=== PATIENT | male | born 1970 | race Caucasian/White ===

== ENCOUNTER → 2022-05-18 09:10 | Outpatient (BNVA) | payer OTHER, SELFPAY | PROVIDERS: PCP Emergency Medicine Emergency Medical Services; Visit Provider Surgery | DX: Z12.11 Encounter for screening for malignant neoplasm of colon (principal); K21.9 Gastro-esophageal reflux disease without esophagitis | CPT/HCPCS: 99203 ==

== ENCOUNTER 2022-08-02 05:32 | Day surgery (SDC) | payer OTHER, SELFPAY ==
[2022-07-31 11:08] VITALS: BMI 30.8
--- NOTE | 2022-08-02 06:06 | P.HP_ITS ---
Providers/Chief Complaint Primary Care Provider: Ramu Beavers DO Chief Complaint: Abdominal pain History of Present Illness Daniel Mccoy is a 52 year old male here for EGD and colonoscopy Medications/Allergies Home Medications Medication Instructions Recorded Confirmed Last Taken Type carvedilol 25 mg tablet 25 mg PO BID 05/18/22 07/31/22 07/31/22 History empagliflozin 10 mg tablet 10 mg PO DAILY 05/18/22 07/31/22 07/31/22 History (Jardiance) lisinopril 30 mg tablet 30 mg PO BID 05/18/22 07/31/22 07/31/22 History omeprazole 10 mg capsule,delayed 10 mg PO DAILY 05/18/22 07/31/22 07/31/22 History release aspirin 325 mg tablet 325 mg PO DAILY 07/31/22 07/31/22 07/30/22 History atorvastatin 40 mg tablet 40 mg PO QPM 07/31/22 07/31/22 07/30/22 History Allergies Allergy/AdvReac Type Severity Reaction Status Date / Time No Known Allergies Allergy Unverified 05/18/22 09:16 PFSH Acute PFSH: Medical History (Updated 05/18/22 @ 09:30 by Jose L Cordero DO) GERD (gastroesophageal reflux disease) History of heart attack 2010 Pacemaker 2011 Surgical History Hx of heart bypass surgery 2009 Family History Mother Heart attack Father Heart attack Social History Smoking and tobacco status: never smoked Vitals/I&O/Wt Weight last 48 hrs Weight 240 lb A&P Assessment and plan (1) GERD (gastroesophageal reflux disease): Status: Acute Plan EGD and colonoscopy Attestations Medical Necessity Statement*: home Coding Level of Care Code Acute Shear Operator for [facility] Fwd Diagnoses GERD (gastroesophageal reflux disease) K21.9
[2022-08-02 06:16] VITALS: BP 152/95; PULSE 72; RESP 20; O2SAT 97
[2022-08-02] MEDS: sodium chloride 0.9% 1,000 ML 30 ML IV (06:20)
--- NOTE | 2022-08-02 06:56 | ANES.PREANE2 ---
Pre-Anesthetic Assessment Height/Weight: Height 1.88 m Weight 108.862 kg Pulse Resp BP Pulse Ox O2 Del Method 72 20 H 152/95 97 08/02/22 06:16 08/02/22 06:16 08/02/22 06:16 08/02/22 06:16 08/02/22 06:16 Preop Diagnosis: Screening Operation Date: 08/02/22 07:00 Proposed Procedures p EGD and colonoscopy 56249,97181,Z12.11,K21.9(Not Applicable) - Jose L Cordero DO s Colonoscopy(Not Applicable) - Jose L Cordero DO Familial anesthetic complications: None Was Beta Matias taken within 24 hours: Yes Was Clonidine taken within 24 hours: N/A Last intake: Intake Last Liquid Date 08/01/22 Last Liquid Time 23:15 Last Solid Date 07/31/22 Last Solid Time 21:00 Social Alcohol (occasional ) and No tobacco Exam alert, oriented x 3 and clear to auscultation bilaterally Airway Submandibular: within normal limits Cervical ROM: within normal limits Mallampati: Class II Dentition: full History/ROS No significant history except as noted Pulmonary None reported CV/HEM Hypertension and Myocardial Infarction LA IN 2009, CABG 2009 None reported Hepatic None reported GI Gastroesophageal Reflux Disease Metabolic None reported Musc/skel None reported Neuropsych None reported Anesthetic Plan Anesthesia: Anesthesia Evaluation and MAC Risk of > 500 ml blood loss (7ml/kg in children): No Medications/Allergies Home Medications Medication Instructions Recorded Confirmed Last Taken Type carvedilol 25 mg tablet 25 mg PO BID 05/18/22 07/31/22 08/01/22 History empagliflozin 10 mg tablet 10 mg PO DAILY 05/18/22 07/31/22 08/01/22 History (Jardiance) lisinopril 30 mg tablet 30 mg PO BID 05/18/22 07/31/22 08/01/22 History omeprazole 10 mg capsule,delayed 10 mg PO DAILY 05/18/22 07/31/22 08/01/22 History release aspirin 325 mg tablet 325 mg PO DAILY 07/31/22 07/31/22 07/30/22 History atorvastatin 40 mg tablet 40 mg PO QPM 07/31/22 07/31/22 07/31/22 History Allergies Allergy/AdvReac Type Severity Reaction Status Date / Time No Known Allergies Allergy Unverified 05/18/22 09:16 Current Medications Generic Name Dose Route Start Last Admin Trade Name Sharif PRN Reason Stop Dose Admin Sodium Chloride 1,000 mls @ 30 mls/hr 08/02/22 06:00 08/02/22 06:20 Sodium Chloride 0.9% IV 08/03/22 05:59 30 mls/hr .Q24H MICHOACANO Administration PFSH Anesthesia Medical History (Updated 05/18/22 @ 09:30 by Jose L Cordero DO) GERD (gastroesophageal reflux disease) History of heart attack 2009 Pacemaker 2011 Surgical History Hx of heart bypass surgery 2009 Family History Mother Heart attack Father Heart attack Social History Smoking and tobacco status: never smoked Data Anesthesia Cardiac Studies: No Data to Display
[2022-08-02 07:32] VITALS: BP 135/79; PULSE 69; RESP 16; TEMP 35.2; O2SAT 94
[2022-08-02 07:43] VITALS: BP 126/67; PULSE 67; RESP 18; O2SAT 98
--- NOTE | 2022-08-02 11:47 | ANE.PACU2 ---
Inpatient post-anesthesia follow up: Airway intact: Yes Vital signs: Temperature 95.4 F Pulse Rate 67 Respiratory Rate 18 Blood Pressure 126/67 Pulse Oximetry 98 Oxygen Delivery Me thod Room Air Oxygen Flow Rate 2 Fraction of Inspir ed Oxygen Hydration adequate: Yes Nausea and vomiting: No Pain level: 1 Mental status: Baseline
== END 2022-08-02 07:56 | disposition home or self-care (01) ==
PROVIDERS: PCP Emergency Medicine Emergency Medical Services; Visit Provider Surgery
PROC: 0DJ08ZZ Inspection of Upper Intestinal Tract, Via Natural or Artificial Opening Endoscopic (ICD-10-PCS; CPT 43235; principal; 2022-08-02 07:00)
PROC: 0DJD8ZZ Inspection of Lower Intestinal Tract, Via Natural or Artificial Opening Endoscopic (ICD-10-PCS; CPT 45378; 2022-08-02 07:00)
DX: Z12.11 Encounter for screening for malignant neoplasm of colon (principal); K57.30 Diverticulosis of large intestine without perforation or abscess without bleeding; K21.9 Gastro-esophageal reflux disease without esophagitis; I10 Essential (primary) hypertension; I25.2 Old myocardial infarction; Z79.82 Long term (current) use of aspirin; Z95.0 Presence of cardiac pacemaker; Z95.1 Presence of aortocoronary bypass graft
CPT/HCPCS: 43235; 45378; J2370; J2704; J7030

== ENCOUNTER → 2022-12-21 13:18 | Outpatient (BNVA) | payer OTHER, SELFPAY | PROVIDERS: PCP Emergency Medicine Emergency Medical Services; Visit Provider Internal Medicine Cardiovascular Disease | DX: I25.10 Atherosclerotic heart disease of native coronary artery without angina pectoris (principal); Z95.810 Presence of automatic (implantable) cardiac defibrillator; I25.5 Ischemic cardiomyopathy; E78.5 Hyperlipidemia, unspecified | CPT/HCPCS: 93005; 93288; 93289; 99204; Q3014 ==

== ENCOUNTER → 2023-01-17 13:59 | Outpatient (BNVA) | payer OTHER, SELFPAY | PROVIDERS: PCP Emergency Medicine Emergency Medical Services; Visit Provider Internal Medicine Cardiovascular Disease | DX: Z45.02 Encounter for adjustment and management of automatic implantable cardiac defibrillator (principal) | CPT/HCPCS: 93289 ==

== ENCOUNTER 2023-02-15 13:09 | Emergency (ER) | payer OTHER, SELFPAY ==
[2023-02-15 13:19] VITALS: BP 118/78; PULSE 72; RESP 18; TEMP 36.7; O2SAT 98; BMI 28.5
--- NOTE | 2023-02-15 13:25 | ECG_ITS ---
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 Measurements Intervals [place] Rate: 74 P: 59 MA: 143 QRS: -81 QRSD: 172 T: 77 QT: 463 QTc: 516 Interpretive Statements ELECTRONIC VENTRICULAR PACEMAKER No previous ECG available for comparison Electronically Signed On 02-15-2023 18:42:15 CDT by Mega Whitney M.D. [id number]
[2023-02-15 16:03] VITALS: BP 118/78; PULSE 72; RESP 18; TEMP 36.7; O2SAT 98
== END 2023-02-15 16:04 | disposition left against medical advice (07) ==
PROVIDERS: Emergency Provider Family Medicine; PCP Emergency Medicine Emergency Medical Services
DX: Z53.21 Procedure and treatment not carried out due to patient leaving prior to being seen by health care provider (principal)
CPT/HCPCS: 93005; 99283

== ENCOUNTER 2023-02-26 06:32 | Emergency (ER) | payer OTHER, SELFPAY ==
[2023-02-26] VITALS (7 sets, daily range): BP systolic 100–132; BP diastolic 64–76; PULSE 69–76; RESP 12–18; TEMP 36.5; O2SAT 97–99; BMI 28.2
--- NOTE | 2023-02-26 06:41 | XR_ITS ---
WS: [id number] EXAMINATION: XR chest 1V portable [id number] REASON FOR EXAM: dyspnea/cough COMPARISON: None available. ORDER DATE: 02/26/2023 7:08 AM TECHNIQUE: A single, portable frontal chest x-ray was obtained. X-RAY FINDINGS: The lungs are clear. Pleural spaces are clear. No pleural effusions or pneumothorax. Cardiomediastinal silhouette unremarkable except for postsurgical changes. There is a left-sided ICD. No evidence for pulmonary edema. Soft tissue and osseous structures are unremarkable. XR/XR chest 1V portable [id number] IMPRESSION: No acute pulmonary change.
--- NOTE | 2023-02-26 06:59 | ECG_ITS ---
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 Measurements Intervals [place] Rate: 71 P: 148 [place]: 143 QRS: -33 QRSD: 172 T: -12 QT: 498 QTc: 543 Interpretive Statements ELECTRONIC VENTRICULAR PACEMAKER ABNORMAL RHYTHM ECG Compared to ECG 02/15/2023 13:26:31 No significant changes Electronically Signed On 02-26-2023 23:37:30 CDT by Linnette Pratt M.D. [id number] f
[2023-02-26 07:13] LABS: Basophils % 0.3 %; Eosinophils % 0.1 %; Hematocrit 38.1 % (42.0-52.0); Hemoglobin 12.5 g/dL (11.7-16.6); Lymphocytes % 8.4 %; Mean Corpuscular HGB Conc 32.8 g/dL (30.0-36.0); Mean Corpuscular Hemoglobin 29.3 pg (28.0-34.0); Mean Corpuscular Volume 89.4 fl (80-94); Mean Platelet Volume 9.8 fL (7.4-10.4); Monocytes # 0.8 10^3/uL (0.2-0.9); Monocytes % 6.5 %; Neutrophils # 10.19 10^3/uL (1.8-7.7); Neutrophils % 84.2 %; Nucleated Red Blood Cells % 0 %; Platelet Count 169 10^3/cmm (130-400); Red Blood Count 4.26 10^6/uL (4.1-5.3); Red Cell Distribution Width 12.5 % (12.1-15.1); White Blood Count 12.1 10^3/uL (4.0-10.0)
--- NOTE | 2023-02-26 07:17 | ED_ITS ---
HPI - Weakness General: Chief complaint: Weakness Stated complaint: Pale, Chills, Cough, N/V Time Seen by Provider: 02/26/23 06:40 Source: patient Mode of arrival: ambulatory History of Present Illness: 52-year-old male presents to the emergency room with complaints of chills nausea vomiting cough shortness of breath. 6 weeks ag o patient had a pacemaker revision with a lead removal for his ICD. He has a small portion of the wound that has dehisced he has noted some purulent drainage from it at times. It is not actively draining at this time. No chest pain no orthopnea no PND no increased swelling in his legs he has not had any distal discharges from his ICD that he has noted. He has a known history of severe ischemic cardiomyopathy. Severity: mild Relieving factors: none Associated symptoms: Denies chest pain, chills, confusion, melena, decreased appetite, diaphoresis, dysuria, easy bruising, fever(s), headache(s), myalgias, nausea, rash, short of breath, syncope or vomiting Review of Systems Const: Denies: fever(s), chills or diaphoresis ENMT: Denies: throat pain, ear or mastoid pain, nasal discharge or nasal daniele estion Card: Denies: chest pain, palpitations, edema, syncope or orthopnea Resp: Denies: dyspnea, productive cough or non-productive cough GI: Denies: abdominal pain, nausea, vomiting or melena : Denies: dysuria, urinary frequency or urinary urgency Skin/Breast: Denies: rash or pruritus Neuro: Denies: headache(s) or confusion Bert/Lymph: Denies: easy bruising [facility] ED PFSH: Medical History CAD (coronary artery disease) Cardiac resynchronization therapy defibrillator (ARCHIVIST-D) in place Dyslipidemia GERD (gastroesophageal reflux disease) History of heart attack 2010 Ischemic cardiomyopathy Surgical History Hx of heart bypass surgery 2010 S/P coronary artery stent placement Family History Mother Heart attack Father Heart attack Social History (Reviewed 02/26/23 @ 07:23 by MELITA Crews Smoking and tobacco status: former smoker Physical Exam Const: COMMON NORMALS: no acute distress GENERAL APPEARANCE: cooperative and comfortable ORIENTATION/CONSCIOUSNESS: Yes awake, Yes oriented to person, Yes oriented to place and Yes oriented to time HENMT: COMMON NORMALS: normocephalic, atraumatic and hearing grossly normal bilaterally HEAD & SCALP: normocephalic and atraumatic Resp: COMMON NORMALS: normal respiratory effort, No retractions, No use of accessory muscles and clear to auscultation bilaterally AUSCULTATION: clear to auscultation bilaterally Cardio: COMMON NORMALS: regular rate, regular rhythm and No murmurs present (Cardio) RATE: regular rate RHYTHM: regular rhythm GI: COMMON NORMALS: Soft to palpation and No hepatosplenomegaly present AUSCULTATION: Yes normoactive bowel sounds PALPATION: Yes Soft to palpation, No Tenderness to palpation present (GI), No Guarding due to palpation present (GI) and Yes No hepatosplenomegaly present Extremity: COMMON NORMALS: normal to inspection, capillary refill normal, no clubbing, cyanosis or edema, no calf tenderness and no pedal edema Neuro: SENSORIUM/ORIENTATION: Yes oriented to person, Yes oriented to place and Yes oriented to time Skin: OTHER: Pinpoint opening on the superior medial aspect of the wound approximately 3 mm in diameter no active drainage no localized erythema. With compression of the area I can exclude a purulent drainage to this was cultured. By manipulating the wound a little bit I am able to visualize the pacemaker through the wound and can actually read several numbers of the serial number. Course Vital Signs: Vital signs: Vital Signs Temperature 97.7 F 02/26/23 06:38 Pulse Rate 72 02/26/23 12:36 Respiratory Rate 12 02/26/23 12:36 Blood Pressure 120/69 02/26/23 12:36 Pulse Oximetry 98 02/26/23 12:36 Oxygen Delivery Me thod 02/26/23 07:00 MDM - Weakness Medical Decision Making Patient appears to have infection and additionally has an open wound. There is purulent drainage coming from the cavity around the pacemaker itself I called Dr. Moreno who is the attending and placed the pacer. Discussed with him related findings he recommends that we transfer patient. Patient was given a dose of IV vancomycin here and transferred to [place] were Dr. Moreno will see the patient and discuss further recommendations. Medical Records I reviewed the patient's medical records. Lab Data I reviewed the patient's lab results. 02/26/23 07:05 02/26/23 07:05 Radiology Impressions Chest X-Ray 02/26/23 06:41 IMPRESSION: No acute pulmonary change. Laboratory Results WBC 12.1 10^3/uL (4.0-10.0) H 02/26/23 07:05 RBC 4.26 10^6/uL (4.1-5.3) 02/26/23 07:05 Hgb 12.5 g/dL (11.7-16.6) 02/26/23 07:05 Hct 38.1 % (42.0-52.0) L 02/26/23 07:05 MCV 89.4 fl (80-94) 02/26/23 07:05 MCH 29.3 pg (28.0-34.0) 02/26/23 07:05 MCHC 32.8 g/dL (30.0-36.0) 02/26/23 07:05 RDW 12.5 % (12.1-15.1) 02/26/23 07:05 Plt Count 169 10^3/cmm (130-400) 02/26/23 07:05 MPV 9.8 fL (7.4-10.4) 02/26/23 07:05 Neut % (Auto) 84.2 % 02/26/23 07:05 Lymph % (Auto) 8.4 % 02/26/23 07:05 [place] % (Auto) 6.5 % 02/26/23 07:05 Eos % (Auto) 0.1 % 02/26/23 07:05 Baso % (Auto) 0.3 % 02/26/23 07:05 Neut # (Auto) 10.19 10^3/uL (1.8-7.7) H 02/26/23 07:05 Lymph # (Auto) 1.0 10^3/uL (0.8-4.8) 02/26/23 07:05 [place] # (Auto) 0.8 10^3/uL (0.2-0.9) 02/26/23 07:05 Eos # (Auto) 0.0 10^3/uL (0.0-0.8) 02/26/23 07:05 Baso # (Auto) 0.0 10^3/uL (0.0-0.1) 02/26/23 07:05 Nucleated RBC % (auto) 0 % 02/26/23 07:05 Nucleated RBCs # 0.0 /100WBC 02/26/23 07:05 Sodium 133 mmol/L (136-145) L 02/26/23 07:05 Potassium 3.7 mmol/L (3.5-5.1) 02/26/23 07:05 Chloride 96 mmol/L (98-107) L 02/26/23 07:05 Carbon Dioxide 23 mmol/L (22-29) 02/26/23 07:05 Anion Gap 17.7 (5-19) 02/26/23 07:05 BUN 15 mg/dL (6-20) 02/26/23 07:05 Creatinine 0.8 mg/dL (0.7-1.2) 02/26/23 07:05 GFR Calculation 101.1 mL/min (90-130) 02/26/23 07:05 Glucose 118 mg/dL (65-115) H 02/26/23 07:05 Calculated Osmolality 278 mOsm/kg (285-295) L 02/26/23 07:05 Calcium 8.9 mg/dL (8.5-10.5) 02/26/23 07:05 Total Bilirubin 0.9 mg/dL (0.15-1.2) 02/26/23 07:05 AST 28 U/L (0-40) 02/26/23 07:05 ALT 25 U/L (0-41) 02/26/23 07:05 Alkaline Phosphatase 71 U/L (40-130) 02/26/23 07:05 NT-Pro-B Natriuret Pep 1398 pg/mL (0-125) H 02/26/23 07:05 Total Protein 7.1 g/dL (6.6-8.7) 02/26/23 07:05 Albumin 2.9 g/dL (3.5-5.2) L 02/26/23 07:05 Globulin 4.2 g/dL (1.3-4.6) 02/26/23 07:05 Urine Color Dark yellow (Yellow) 02/26/23 08:12 Urine Appearance Clear (CLEAR) 02/26/23 08:12 Urine pH 5 (5-7) 02/26/23 08:12 Ur Specific [place] 1.020 (1.005-1.030) 02/26/23 08:12 Urine Protein Neg (Negative) 02/26/23 08:12 Urine Glucose (UA) 4+ (Normal) H 02/26/23 08:12 Urine Ketones 1+ (Negative) H 02/26/23 08:12 Urine Blood 2+ (Negative) H 02/26/23 08:12 Urine Nitrate Negative (Negative) 02/26/23 08:12 Urine Bilirubin Neg (Negative) 02/26/23 08:12 Urine Urobilinogen Norm mg/dL (Negative) 02/26/23 08:12 Ur Leukocyte Esterase Negative (Negative) 02/26/23 08:12 Urine RBC 0-4 /hpf (0-2) H 02/26/23 08:12 Urine WBC 0-4 /hpf (0-5) H 02/26/23 08:12 Ur Squamous Epith Cells Rare /hpf (0-5) 02/26/23 08:12 Ur Transition Epith Cell 0-4 /hpf 02/26/23 08:12 Amorphous Sediment Not Reportable 02/26/23 08:12 Urine Bacteria Trace /hpf (NONE) 02/26/23 08:12 Hyaline Casts 0-4 /lpf H 02/26/23 08:12 Urine Mucus Trace /hpf 02/26/23 08:12 Discharge Plan Discharge Patient Disposition: Xfer Short-Term Hosp Condition: Stable Referrals: Ramu Beavers DO [Primary Care Provider] - Coding Level of Care Code ED Plasticator for [facility]
--- NOTE | 2023-02-26 07:36 | PC.NURSE ---
PT PLACED ON CONTINUOUS NIBP, SPO2, AND CM
[2023-02-26 07:42] LABS: Alanine Aminotransferase 25 U/L (0-41); Albumin Level 2.9 g/dL (3.5-5.2); Alkaline Phosphatase 71 U/L (40-130); Anion Gap 17.7 (5-19); Aspartate Amino Transferase 28 U/L (0-40); Blood Urea Nitrogen 15 mg/dL (6-20); Calcium 8.9 mg/dL (8.5-10.5); Carbon Dioxide 23 mmol/L (22-29); Chloride 96 mmol/L (98-107); Globulin 4.2 g/dL (1.3-4.6); Glomerular Filtration Rate 101.1 mL/min (90-130); Glucose 118 mg/dL (65-115); NT Pro B Type Natriuretic Pept 1398 pg/mL (0-125); Osmolality Calculated 278 mOsm/kg (285-295); Potassium 3.7 mmol/L (3.5-5.1); Sodium 133 mmol/L (136-145); Total Bilirubin 0.9 mg/dL (0.15-1.2); Total Protein 7.1 g/dL (6.6-8.7)
--- NOTE | 2023-02-26 08:09 | PC.PHAR ---
Addendum entered by Christel Alegria 02/26/23 08:11: [facility] to [facility] Original Note: pt and pts verified pts medications-pts states she had put the pts lisinopril 40mg daily on hold for a week now states his bp was low-pt states he didnt take any meds today
[2023-02-26 08:45] LABS: Protein Urine Neg (Negative); Urine Appearance Clear (CLEAR); Urine Color Dark Yellow (Yellow); pH Urine 5 (5-7)
[2023-02-26 08:46] LABS: Add Urine Microscopic? YES; Bilirubin Urine Neg (Negative); Blood Urine 2+ (Negative); Glucose Urine UA 4+ (Normal); Ketones Urine 1+ (Negative); Leukocyte Esterase Urine Negative (Negative); Nitrate Urine Negative (Negative); Urobilinogen Urine Norm (Negative)
[2023-02-26 08:47] LABS: RBC Urine 0-4 /hpf (0-2); Squamous Epithelial Cell Urine RARE /hpf (0-5); Transitional Epi Cells Urine 0-4 /hpf; WBC Urine 0-4 /hpf (0-5)
[2023-02-26 08:48] LABS: Add Urine Culture? No; Bacteria Urine TRACE /hpf; Hyaline Casts Urine 0-4 /lpf; Mucus Urine TRACE /hpf
--- NOTE | 2023-02-26 12:37 | PC.NURSE ---
PT REPORT CALLED TO GILLIAN DALE AT [facility]
[2023-02-26] MEDS: D5-NS 0.45% + KCL 20 mEq 20 MEQ/1,000 ML BAG 75 MEQ IV (12:53)
[2023-02-27 07:10] LABS: Acinetobacter baumannii Not Detected (NOT DETECT); Bacteroides fragilis Not Detected (NOT DETECT); CTX-M Not Detected (NOT DETECT); Citrobacter Not Detected (NOT DETECT); Cronobacter sakazakii Not Detected (NOT DETECT); Enterobacter cloacae complex Not Detected (NOT DETECT); Enterobacter non cloacae Not Detected (NOT DETECT); Fusobacterium necrophorum Not Detected (NOT DETECT); Fusobacterium nucleatum Not Detected (NOT DETECT); Haemophilus influenzae Not Detected (NOT DETECT); IMP Resistance Gene Not Detected (NOT DETECT); KPC Resistance Gene Not Detected (NOT DETECT); Klebsiella pneumoniae group Not Detected (NOT DETECT); Morganella morganii Not Detected (NOT DETECT); NDM Resistance Gene Not Detected (NOT DETECT); Neisseria meningitidis Not Detected (NOT DETECT); OXA Resistance Gene Not Detected (NOT DETECT); Pan Candida Not Detected (NOT DETECT); Pan Gram-Positive Not Detected (NOT DETECT); Proteus mirabilis Not Detected (NOT DETECT); Pseudomonas aeruginosa Detected (NOT DETECT); Salmonella Not Detected (NOT DETECT); Serratia Not Detected (NOT DETECT); Serratia marcescens Not Detected (NOT DETECT); Stenotrophomonas maltophilia Not Detected (NOT DETECT); VIM Resistance Gene Not Detected (NOT DETECT)
== END 2023-02-26 13:30 | disposition short-term general hospital (02) ==
PROVIDERS: Emergency Provider Family Medicine; PCP Emergency Medicine Emergency Medical Services
DX: T82.7XXA Infection and inflammatory reaction due to other cardiac and vascular devices, implants and grafts, initial encounter (principal); Y71.8 Miscellaneous cardiovascular devices associated with adverse incidents, not elsewhere classified; I25.10 Atherosclerotic heart disease of native coronary artery without angina pectoris; E78.5 Hyperlipidemia, unspecified; Z95.0 Presence of cardiac pacemaker; Z87.891 Personal history of nicotine dependence
CPT/HCPCS: 36415; 71045; 80053; 81001; 83880; 85025; 87040; 87070; 87077; 87150; 87186; 87205; 93005; 96365; 96366; 99285

== ENCOUNTER 2023-03-21 13:35 | Outpatient (CLI) | payer OTHER, SELFPAY ==
[2023-03-21 14:07] LABS: Basophils # 0.1 10^3/uL (0.0-0.1); Basophils % 1.3 %; Eosinophils # 0.4 10^3/uL (0.0-0.8); Eosinophils % 5.6 %; Hematocrit 36.4 % (42.0-52.0); Hemoglobin 11.8 g/dL (11.7-16.6); Lymphocytes # 1.9 10^3/uL (0.8-4.8); Lymphocytes % 30.8 %; Mean Corpuscular HGB Conc 32.4 g/dL (30.0-36.0); Mean Corpuscular Volume 92.6 fl (80-94); Mean Platelet Volume 10.5 fL (7.4-10.4); Monocytes # 0.5 10^3/uL (0.2-0.9); Monocytes % 7.5 %; Neutrophils # 3.44 10^3/uL (1.8-7.7); Neutrophils % 54.5 %; Nucleated Red Blood Cells % 0 %; Platelet Count 326 10^3/cmm (130-400); Red Blood Count 3.93 10^6/uL (4.1-5.3); Red Cell Distribution Width 15.5 % (12.1-15.1); White Blood Count 6.3 10^3/uL (4.0-10.0)
== END 2023-03-21 13:36 | disposition home or self-care (01) ==
LOC: LAB 13:36
PROVIDERS: PCP Emergency Medicine Emergency Medical Services; Visit Provider Emergency Medicine Emergency Medical Services
DX: T82.7XXA Infection and inflammatory reaction due to other cardiac and vascular devices, implants and grafts, initial encounter (principal); Y83.8 Other surgical procedures as the cause of abnormal reaction of the patient, or of later complication, without mention of misadventure at the time of the procedure
CPT/HCPCS: 85025

== ENCOUNTER 2023-03-28 14:26 | Outpatient (CLI) | payer OTHER, SELFPAY ==
[2023-03-28 15:00] LABS: Basophils % 0.9 %; Eosinophils # 0.3 10^3/uL (0.0-0.8); Eosinophils % 6.5 %; Hematocrit 38.3 % (42.0-52.0); Hemoglobin 12.3 g/dL (11.7-16.6); Lymphocytes # 1.5 10^3/uL (0.8-4.8); Lymphocytes % 34.1 %; Mean Corpuscular HGB Conc 32.1 g/dL (30.0-36.0); Mean Corpuscular Hemoglobin 30.8 pg (28.0-34.0); Mean Platelet Volume 10.7 fL (7.4-10.4); Monocytes # 0.4 10^3/uL (0.2-0.9); Neutrophils # 2.06 10^3/uL (1.8-7.7); Neutrophils % 48.3 %; Nucleated Red Blood Cells % 0 %; Platelet Count 221 10^3/cmm (130-400); Red Blood Count 3.99 10^6/uL (4.1-5.3); Red Cell Distribution Width 15.9 % (12.1-15.1); White Blood Count 4.3 10^3/uL (4.0-10.0)
[2023-03-28 15:25] LABS: Alanine Aminotransferase 31 U/L (0-41); Albumin Level 4.2 g/dL (3.5-5.2); Alkaline Phosphatase 81 U/L (40-130); Anion Gap 14.9 (5-19); Aspartate Amino Transferase 24 U/L (0-40); Blood Urea Nitrogen 19 mg/dL (6-20); Carbon Dioxide 24 mmol/L (22-29); Chloride 104 mmol/L (98-107); Globulin 2.3 g/dL (1.3-4.6); Glomerular Filtration Rate 140.9 mL/min (90-130); Glucose 112 mg/dL (65-115); Osmolality Calculated 291 mOsm/kg (285-295); Potassium 3.9 mmol/L (3.5-5.1); Sodium 139 mmol/L (136-145); Total Bilirubin 0.4 mg/dL (0.15-1.2); Total Protein 6.5 g/dL (6.6-8.7)
== END 2023-03-28 14:27 | disposition home or self-care (01) ==
LOC: LAB 14:27
PROVIDERS: PCP Emergency Medicine Emergency Medical Services; Visit Provider Emergency Medicine Emergency Medical Services
DX: T82.7XXA Infection and inflammatory reaction due to other cardiac and vascular devices, implants and grafts, initial encounter (principal); Y83.8 Other surgical procedures as the cause of abnormal reaction of the patient, or of later complication, without mention of misadventure at the time of the procedure
CPT/HCPCS: 80053; 85025; 86140

== ENCOUNTER 2023-04-04 11:38 | Outpatient (CLI) | payer OTHER, SELFPAY ==
[2023-04-04 12:05] LABS: Basophils # 0.1 10^3/uL (0.0-0.1); Basophils % 0.8 %; Eosinophils # 0.2 10^3/uL (0.0-0.8); Eosinophils % 2.3 %; Hematocrit 39.7 % (42.0-52.0); Hemoglobin 13.1 g/dL (11.7-16.6); Lymphocytes # 1.2 10^3/uL (0.8-4.8); Lymphocytes % 16.2 %; Mean Corpuscular Hemoglobin 31.1 pg (28.0-34.0); Mean Corpuscular Volume 94.3 fl (80-94); Mean Platelet Volume 10.6 fL (7.4-10.4); Monocytes # 0.5 10^3/uL (0.2-0.9); Monocytes % 6.6 %; Neutrophils # 5.22 10^3/uL (1.8-7.7); Neutrophils % 73.8 %; Nucleated Red Blood Cells % 0 %; Platelet Count 200 10^3/cmm (130-400); Red Blood Count 4.21 10^6/uL (4.1-5.3); Red Cell Distribution Width 15.9 % (12.1-15.1); White Blood Count 7.1 10^3/uL (4.0-10.0)
[2023-04-04 12:29] LABS: Alanine Aminotransferase 31 U/L (0-41); Albumin Level 4.4 g/dL (3.5-5.2); Alkaline Phosphatase 78 U/L (40-130); Aspartate Amino Transferase 31 U/L (0-40); Blood Urea Nitrogen 15 mg/dL (6-20); Calcium 9.4 mg/dL (8.5-10.5); Carbon Dioxide 21 mmol/L (22-29); Chloride 101 mmol/L (98-107); Globulin 2.3 g/dL (1.3-4.6); Glomerular Filtration Rate 101.1 mL/min (90-130); Glucose 88 mg/dL (65-115); Osmolality Calculated 282 mOsm/kg (285-295); Sodium 136 mmol/L (136-145); Total Bilirubin 0.7 mg/dL (0.15-1.2); Total Protein 6.7 g/dL (6.6-8.7)
[2023-04-04 12:36] LABS: Anion Gap 18.1 (5-19); Potassium 4.1 mmol/L (3.5-5.1)
== END 2023-04-04 11:39 | disposition home or self-care (01) ==
LOC: LAB 11:41
PROVIDERS: PCP Emergency Medicine Emergency Medical Services; Visit Provider Emergency Medicine Emergency Medical Services
DX: T82.7XXA Infection and inflammatory reaction due to other cardiac and vascular devices, implants and grafts, initial encounter (principal); Y71.8 Miscellaneous cardiovascular devices associated with adverse incidents, not elsewhere classified; I33.0 Acute and subacute infective endocarditis
CPT/HCPCS: 80053; 85025; 86140

== ENCOUNTER → 2023-08-27 14:35 | Outpatient (BNVA) | payer OTHER, SELFPAY | PROVIDERS: PCP Emergency Medicine Emergency Medical Services; Visit Provider Dermatology | DX: D48.5 Neoplasm of uncertain behavior of skin (principal); D18.01 Hemangioma of skin and subcutaneous tissue; L74.519 Primary focal hyperhidrosis, unspecified; L81.4 Other melanin hyperpigmentation | CPT/HCPCS: 11102; 99204 ==

== ENCOUNTER → 2023-09-27 08:00 | Outpatient (BNVA) | payer OTHER, SELFPAY | PROVIDERS: PCP Emergency Medicine Emergency Medical Services; Visit Provider Dermatology | DX: C44.519 Basal cell carcinoma of skin of other part of trunk (principal) | CPT/HCPCS: 13101; 17313 ==

== ENCOUNTER → 2023-10-10 08:13 | Outpatient (BNVA) | payer OTHER, SELFPAY | PROVIDERS: PCP Emergency Medicine Emergency Medical Services; Visit Provider Nurse Practitioner Family | DX: Z48.02 Encounter for removal of sutures (principal) | CPT/HCPCS: 99024; 99212 ==

== ENCOUNTER 2023-10-11 19:54 | Emergency (ER) | payer OTHER, SELFPAY ==
[2023-10-11 20:02] VITALS: BP 182/80; PULSE 70; RESP 17; TEMP 36.5; O2SAT 97; BMI 30.2
[2023-10-11 20:23] VITALS: BP 159/75; PULSE 62; O2SAT 97
[2023-10-11] MEDS: mupirocin oint 22 gm 1 APPLIC TOPICAL (21:05)
[2023-10-11 21:15] VITALS: PULSE 63; O2SAT 97
--- NOTE | 2023-10-12 00:16 | W.ED.WOUNDLC ---
HPI - Wound/Laceration General: Chief Complaint: Wound/Laceration Stated Complaint: wound issues on back Time Seen by Provider: 10/11/23 20:19 History of Present Illness: Patient is in today for a wound. He reports that 2 weeks ago he had Mohs procedure for basal cell carcinoma on his low back. He reports that yesterday he went for his follow-up and the sutures were removed and he was told that the wound looked great with no signs of infection. He reports that today he was getting off the couch and the wound busted open again. He denies fever, chills, nausea, vomiting. Associated symptoms: Denies chills or fever(s) Review of Systems Const: Denies: fever(s) or chills Card: Denies: chest pain, palpitations or irregular heart rhythm Resp: Denies: dyspnea, productive cough or non-productive cough Skin/Breast: Reports: other (Wound dehiscence) [facility] ACCESS [facility] ED PFSH: Medical History CAD (coronary artery disease) Cardiac resynchronization therapy defibrillator (RESIDENTIAL LIFE DIRECTOR-D) in place Dyslipidemia GERD (gastroesophageal reflux disease) History of heart attack 2010 Ischemic cardiomyopathy Surgical History Hx of heart bypass surgery 2010 S/P coronary artery stent placement Family History Mother Heart attack Father Heart attack Social History Smoking and tobacco/nicotine status: former use of tobacco/nicotine Physical Exam Const: COMMON NORMALS: no acute distress, patient oriented x3 and alert OTHER: Patient does appear anxious. He states that he has had so many medical issues that it just makes him anxious. Resp: COMMON NORMALS: normal respiratory effort and No use of accessory muscles Neuro: COMMON NORMALS: patient oriented x3 SENSORIUM/ORIENTATION: Yes alert Skin: NARRATIVE SKIN EXAM: Dehisced surgical wound on patient's mid lower back. Approximately 1 inch x 2-1/2 inches. Wound bed is beefy red with no discolored drainage. No surrounding erythema. Course Vital Signs: Vital signs: Vital Signs Temperature 97.7 F 10/11/23 20:02 Pulse Rate 63 10/11/23 21:15 Respiratory Rate 17 10/11/23 20:02 Blood Pressure 159/75 10/11/23 20:23 Pulse Oximetry 97 10/11/23 21:15 Oxygen Delivery Me thod Room Air 10/11/23 20:23 MDM - Wound/Laceration Medical Decision Making Postop wound dehiscence. I discussed this case with Dr. Gray as there is nobody on for dermatology tonight. Dr. Parsons was able to contact someone with Dr. López's office. It was advised to have the patient put a dressing on the wound and follow-up next week. Mupirocin ointment was ordered for the wound and a dressing was placed over the wound. Encourage patient to apply mupirocin ointment and change dressing twice daily and follow-up at the beginning of next week with Dr. López for further monitoring and management. Return to the ER as needed for any new or worsening symptoms. No radiology studies performed this visit Discharge Plan Discharge Patient Disposition: Home Clinical Impression: Wound dehiscence Condition: Stable Prescriptions: New mupirocin 2 % ointment 1 applic topical BID Qty: 22 0RF No Action carvedilol 25 mg tablet 25 mg PO BID Rx Instructions: must administer with a meal/food Prilosec 40 mg Capsule,Delayed Release(Dr/Ec) 40 mg PO QAM sildenafil 100 mg tablet 100 mg PO PRN PRN (Reason: Erectile Dysfunction) spironolactone 25 mg tablet 25 mg PO DAILY cephalexin 500 mg capsule 500 mg PO Q12H Rx Instructions: for 10 days (rx filled 02/19/23) lisinopril 40 mg tablet 40 mg PO QAM Rx Instructions: (medication been on hold for a week per ) Vitamin D3 50 mcg (2,000 unit) Capsule 50 mcg PO DAILY empagliflozin 25 mg Tablet 25 mg PO DAILY atorvastatin 40 mg Tablet 40 mg PO QPM aspirin 325 mg Tablet 325 mg PO QAM Discharge Orders: Discharge ED (Routine); Ordered 10/11/23 Ordered By: Jacquie Pearson Referrals: Ramu Beavers DO [Primary Care Provider] - Discharge Diet: Usual diet Discharge Activity: Resume usual activity Activity Restrictions/Additional Instructions: Use mupirocin ointment and change dressing twice daily. Follow-up with Dr. López first thing next week. Return to the ER as needed for new or worsening symptoms Coding Level of Care Code ED Clinical Admissions Manager for [facility]
--- NOTE | 2023-10-12 07:35 | DCPLANNER ---
Message was sent to Dr. Santillan office on 10/12/23 at 0735 for them to schedule for an apt on Sunday. Clinic to contact patient for this apt.
== END 2023-10-11 21:17 | disposition home or self-care (01) ==
PROVIDERS: Emergency Provider Nurse Practitioner Family; PCP Emergency Medicine Emergency Medical Services
DX: T81.31XA Disruption of external operation (surgical) wound, not elsewhere classified, initial encounter (principal); Y83.8 Other surgical procedures as the cause of abnormal reaction of the patient, or of later complication, without mention of misadventure at the time of the procedure; Z79.82 Long term (current) use of aspirin; Z87.891 Personal history of nicotine dependence; I25.10 Atherosclerotic heart disease of native coronary artery without angina pectoris; Z95.810 Presence of automatic (implantable) cardiac defibrillator; E78.5 Hyperlipidemia, unspecified; I25.5 Ischemic cardiomyopathy
CPT/HCPCS: 99283

== ENCOUNTER 2023-10-15 10:23 | Outpatient (CLI) | payer OTHER, MEDICARE, SELFPAY ==
--- NOTE | 2023-10-15 10:38 | XR_ITS ---
WS: [id number] PARANASAL SINUSES TECHNIQUE: Gerson Funes and lateral views HISTORY: SINUSITIS COMPARISON: None available. Paranasal sinuses are well aerated. No air-fluid levels. No osseous destruction. Visualized portions of the adjacent bones are normal. No deviation of the bhakti al septum. Focal lucency medial and superior to the LEFT orbit may be a small partially pneumatized frontal sinu s. No additional skull lucencies. IMPRESSION: No paranasal sinus disease identified. No air-fluid levels.
== END 2023-10-15 10:24 | disposition home or self-care (01) ==
PROVIDERS: PCP Emergency Medicine Emergency Medical Services; Visit Provider Nurse Practitioner Family
DX: J01.90 Acute sinusitis, unspecified (principal)
CPT/HCPCS: 12020; 70220